=== PATIENT | female | born 1990 | race American Indian/Alaskan Native ===

== ENCOUNTER 2017-05-26 15:35 | Outpatient (CLI) | payer MEDICAID, OTHER ==
[2017-05-26] MEDS ORDERED: LACTATED RINGERS 500 ML IV ONE (15:39)
[2017-05-26 16:25] LABS: Urine Drugs of Abuse Note Disclamer
[2017-05-26 16:55] LABS: Bilirubin,Urine NEG (Negative); Blood,Urine NEG (Negative); Ketones,Urine NEG (Negative); Leukocyte Esterase,Urine NEG (Negative); Nitrite,Urine NEG (Negative); Protein,Urine <15 mg/dL mg/dL (Negative); Urobilinogen,Urine < 2.0 mg/dL (<2.0)
[2017-05-26 17:06] VITALS: BP 104/65
== END 2017-05-26 17:30 | disposition home or self-care (01) ==
LOC: TRG 15:35
PROVIDERS: ATTEND Obstetrics & Gynecology
DX: O47.02 False labor before 37 completed weeks of gestation, second trimester (principal); Z3A.27 27 weeks gestation of pregnancy
CPT/HCPCS: 59025; 80307; 81001

== ENCOUNTER 2017-07-12 15:38 | Observation (INO) | payer MEDICAID ==
[2017-07-12] MEDS ORDERED: LACTATED RINGERS 500 ML IV ONE (16:10)
[2017-07-12] MEDS ORDERED: ZOFRAN ONE (16:40)
[2017-07-12] MEDS ORDERED: ZOFRAN IM ONE (16:48)
[2017-07-12] MEDS ORDERED: TYLENOL PR PRN (17:55)
--- NOTE | 2017-07-12 18:44 | XRay Report ---
FINAL REPORT EXAM: XR CHEST ROUTINE 2V HISTORY: congestion TECHNIQUE: Two view chest PA and lateral PRIORS: None. FINDINGS: Cardiac and mediastinal contours are unremarkable. No focal pulmonary infiltrate is identified. No pleural fluid collection seen. Pulmonary vasculature is unremarkable. IMPRESSION: Negative two-view chest
[2017-07-12 19:36] LABS: Basophils % (Auto) 0.1 % (0.0-1.8); Hematocrit 32.3 % (30.3-42.9); Hemoglobin 10.9 gm/dl (10.1-14.3); Lymphocytes # (Auto) 0.3 K/mm3 (1.2-5.4); Lymphocytes % (Auto) 2.1 % (13.4-35.0); Mean Corpuscular HGB Conc 34 % (30-34); Mean Corpuscular Hemoglobin 32 pg (28-32); Mean Corpuscular Volume 94 fl (79-97); Monocytes # (Auto) 1.2 K/mm3 (0.0-0.8); Monocytes % (Auto) 7.8 % (0.0-7.3); Platelet Count 198 K/mm3 (140-440); Red Blood Count 3.45 M/mm3 (3.65-5.03)
[2017-07-12 19:40] LABS: Bilirubin,Urine NEG (Negative); Blood,Urine NEG (Negative); Color,Urine Yellow (Yellow); Mucus,Urine FEW /HPF; Nitrite,Urine NEG (Negative); Urobilinogen,Urine < 2.0 mg/dL (<2.0)
[2017-07-12] MEDS: LACTATED RINGERS 1,000 ML IV SCH (19:57)
[2017-07-12 20:00] LABS: Alanine Aminotransferase 25 units/L (7-56); Albumin 3.2 g/dL (3.9-5); BUN/Creatinine Ratio 6; Blood Urea Nitrogen 3 mg/dL (7-17); Hemolysis Index 4
--- NOTE | 2017-07-12 20:37 | History and Physical Report ---
History of Present Illness Date of examination: 07/12/17 Date of admission: 07/12/17 20:13 Chief complaint: Febrile illness History of present illness: 26 yo female who started coughing yesterday with body aches. 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 +FM. States there's no on at home with the flu and denies exposure to the flu Past History Past Medical History: no pertinent history Past Surgical History: no surgical history Social history: no significant social history (recently stopped smoking) - Obstetrical History Expected Date of Delivery: 08/21/17 Actual Gestation: 34 Week(s) 2 Day(s) : 2 Number of Pregnancies: 1 () Medications and Allergies Allergies Allergy/AdvReac Type Severity Reaction Status Date / Time No Known Allergies Allergy Unverified 05/26/17 15:39 Active Meds: Active Medications Acetaminophen (Tylenol) 650 mg PA Q4H PRN PRN Reason: Fever Last Admin: 07/12/17 19:56 Dose: 650 mg Lactated Ringer's (Lactated Ringers) 1,000 mls @ 125 mls/hr IV DIRECT SHANTELL Last Admin: 07/12/17 19:57 Dose: 125 mls/hr Review of Systems Constitutional: sweats, fatigue, malaise Respiratory: cough, cough with sputum Gastrointestinal: nausea, vomiting - Vital Signs Vital signs: Vital Signs Temp Pulse Resp 100.8 F H 109 H 22 07/12/17 16:14 07/12/17 16:14 07/12/17 16:14 Temp Pulse Resp BP Pulse Ox 100.3 F H 113 H 22 128/76 07/12/17 19:30 07/12/17 19:27 07/12/17 16:14 07/12/17 19:27 - Physical Exam Breasts: Positive: deferred Lungs: Positive: Clear to auscultation, Normal air movement Abdomen: Positive: soft. Negative: tenderness Uterus: Positive: enlarged. Negative: tender Extremities: Positive: normal. Negative: tenderness, edema - Obstetrical FHR: category 1 Uterine Contraction Monitor Mode: External Results Result Diagrams: 07/12/17 19:10 07/12/17 19:10 Abnormal lab results 07/12/17 07/12/17 Range/Units 19:10 19:10 WBC 14.9 H (4.5-11.0) K/mm3 RBC 3.45 L (3.65-5.03) M/mm3 RDW 13.0 L (13.2-15.2) % Lymph % (Auto) 2.1 L (13.4-35.0) % [place] % (Auto) 7.8 H (0.0-7.3) % Lymph # 0.3 L (1.2-5.4) K/mm3 [place] # 1.2 H (0.0-0.8) K/mm3 Seg Neutrophils % 90.0 H (40.0-70.0) % Seg Neutrophils # 13.4 H (1.8-7.7) K/mm3 Sodium 136 L (137-145) mmol/L Potassium 3.1 L (3.6-5.0) mmol/L Carbon Dioxide 19 L (22-30) mmol/L BUN 3 L (7-17) mg/dL Creatinine 0.5 L (0.7-1.2) mg/dL Calcium 8.0 L (8.4-10.2) mg/dL AST 51 H (5-40) units/L Total Protein 6.0 L (6.3-8.2) g/dL Albumin 3.2 L (3.9-5) g/dL All other labs normal. Assessment and Plan - Patient Problems (1) 34 weeks gestation of Current Visit: Yes Status: Acute (2) Limited care in third trimester Current Visit: Yes Status: Acute (3) Febrile illness, acute Current Visit: Yes Status: Acute Plan to address problem: No s/s chorioamnionitis ? Bronchitis, negative rapid influenza CXR normal BCx2 if T 101 Continune tylenol for aches (4) Hypokalemia Current Visit: Yes Status: Acute Plan to address problem: Replace K+ (5) Glycosuria with normal serum glucose Current Visit: Yes Status: Acute Plan to address problem: chk [id number] (6) Dehydration during Current Visit: Yes Status: Acute Plan to address problem: Continue hydration
[2017-07-12] MEDS ORDERED: REGLAN PO PRN (20:54)
[2017-07-12] MEDS ORDERED: KCL 10MEQ/100ML 10 MEQ/100 ML BAG IV SCH (21:00)
[2017-07-12] MEDS ORDERED: ZITHROMAX PO ONE (21:00)
[2017-07-12] MEDS ORDERED: KCL 20 MEQ in NACL 0.9% 250ML 250 ML IV ONE (21:30)
[2017-07-13 07:11] LABS: Basophils # (Auto) 0.1 K/mm3 (0.0-0.1); Basophils % (Auto) 0.4 % (0.0-1.8); Hematocrit 31.8 % (30.3-42.9); Hemoglobin 10.5 gm/dl (10.1-14.3); Lymphocytes # (Auto) 0.9 K/mm3 (1.2-5.4); Lymphocytes % (Auto) 6.5 % (13.4-35.0); Mean Corpuscular HGB Conc 33 % (30-34); Mean Corpuscular Hemoglobin 31 pg (28-32); Mean Corpuscular Volume 95 fl (79-97); Monocytes # (Auto) 1.8 K/mm3 (0.0-0.8); Monocytes % (Auto) 12.5 % (0.0-7.3); Platelet Count 195 K/mm3 (140-440); Red Blood Count 3.35 M/mm3 (3.65-5.03); Red Cell Distribution Width 13.4 % (13.2-15.2)
[2017-07-13 07:33] LABS: Alanine Aminotransferase 28 units/L (7-56); Albumin 3.2 g/dL (3.9-5); BUN/Creatinine Ratio 8; Blood Urea Nitrogen 4 mg/dL (7-17); Calcium 8.1 mg/dL (8.4-10.2); Hemolysis Index 0
--- NOTE | 2017-07-13 09:06 | Progress Note ---
Assessment and Plan - Patient Problems (1) 34 weeks gestation of Current Visit: Yes Status: Acute (2) Limited care in third trimester Current Visit: Yes Status: Acute (3) Febrile illness, acute Current Visit: Yes Status: Acute Plan to address problem: Feels better, will allow home once 24 hrs afebrile. Continue Zithromax and zofran. (4) Hypokalemia Current Visit: Yes Status: Resolved (5) Glycosuria with normal serum glucose Current Visit: Yes Status: Acute Plan to address problem: No obvious evidence of diabetes (6) Dehydration during Current Visit: Yes Status: Resolved Plan to address problem: no further vomiting (7) Transaminitis Current Visit: Yes Status: Acute Plan to address problem: no evidence of Preeclampsia, observe for now Subjective - Subjective Date of service: 07/13/17 Principal diagnosis: IUP@34 wga, acute bronchitis Interval history: feels better, has some lower back pain. No further vomiting, slight nausea this am. Patient reports: movement normal, contractions (rare), no new complaints Objective - Vital Signs Vital Signs: Vital Signs - 12hr 07/12/17 07/12/17 07/12/17 21:06 21:11 21:16 Temperature Pulse Rate 115 H 109 H 108 H Respiratory Rate Blood Pressure O2 Sat by Pulse 96 97 97 Oximetry 07/12/17 07/12/17 07/12/17 21:21 21:26 21:31 Temperature Pulse Rate 104 H 102 H 102 H Respiratory Rate Blood Pressure O2 Sat by Pulse 96 96 98 Oximetry 07/12/17 07/12/17 07/12/17 21:36 21:41 21:46 Temperature Pulse Rate 107 H 108 H 91 H Respiratory Rate Blood Pressure O2 Sat by Pulse 96 96 97 Oximetry 07/12/17 07/12/17 07/12/17 21:51 21:56 22:00 Temperature Pulse Rate 100 H 92 H 102 H Respiratory Rate Blood Pressure O2 Sat by Pulse 96 96 93 Oximetry 07/12/17 07/12/17 07/12/17 22:01 22:06 22:09 Temperature Pulse Rate 109 H 101 H 109 H Respiratory Rate Blood Pressure O2 Sat by Pulse 92 96 94 Oximetry 07/12/17 07/12/17 07/12/17 22:11 22:14 22:16 Temperature Pulse Rate 102 H 114 H Respiratory Rate Blood Pressure O2 Sat by Pulse 98 76 L 98 Oximetry 07/12/17 07/12/17 07/12/17 22:21 22:23 22:26 Temperature Pulse Rate 92 H 54 L 100 H Respiratory Rate Blood Pressure O2 Sat by Pulse 97 75 L 97 Oximetry 07/12/17 07/12/17 07/12/17 22:31 22:36 22:41 Temperature Pulse Rate 94 H 106 H 107 H Respiratory Rate Blood Pressure O2 Sat by Pulse 96 98 98 Oximetry 07/12/17 07/12/17 07/12/17 22:55 23:00 23:05 Temperature Pulse Rate 89 100 H 109 H Respiratory Rate Blood Pressure O2 Sat by Pulse 96 98 97 Oximetry 07/12/17 07/12/17 07/12/17 23:10 23:15 23:22 Temperature Pulse Rate 100 H 98 H 103 H Respiratory Rate Blood Pressure O2 Sat by Pulse 98 98 98 Oximetry 07/12/17 07/12/17 07/12/17 23:27 23:32 23:37 Temperature Pulse Rate 92 H 98 H 102 H Respiratory Rate Blood Pressure O2 Sat by Pulse 97 97 97 Oximetry 07/12/17 07/12/17 07/12/17 23:39 23:42 23:47 Temperature Pulse Rate 93 H 117 H 102 H Respiratory Rate Blood Pressure O2 Sat by Pulse 93 97 96 Oximetry 07/12/17 07/12/17 07/13/17 23:52 23:57 00:02 Temperature Pulse Rate 109 H 104 H 98 H Respiratory Rate Blood Pressure O2 Sat by Pulse 96 96 98 Oximetry 07/13/17 07/13/17 07/13/17 00:07 00:12 00:25 Temperature Pulse Rate 97 H 94 H 107 H Respiratory Rate Blood Pressure O2 Sat by Pulse 97 96 98 Oximetry 07/13/17 07/13/17 07/13/17 00:30 00:35 00:40 Temperature 98.4 F Pulse Rate 91 H 90 89 Respiratory 18 Rate Blood Pressure O2 Sat by Pulse 96 96 98 Oximetry 07/13/17 07/13/17 07/13/17 00:45 00:50 00:55 Temperature Pulse Rate 92 H 84 82 Respiratory Rate Blood Pressure O2 Sat by Pulse 98 96 96 Oximetry 07/13/17 07/13/17 07/13/17 00:58 01:00 01:05 Temperature Pulse Rate 97 H 85 Respiratory Rate Blood Pressure O2 Sat by Pulse 59 L 97 97 Oximetry 07/13/17 07/13/17 07/13/17 01:10 01:15 01:20 Temperature Pulse Rate 104 H 96 H 104 H Respiratory Rate Blood Pressure O2 Sat by Pulse 98 96 96 Oximetry 07/13/17 07/13/17 07/13/17 03:54 04:00 04:05 Temperature Pulse Rate 107 H 94 H 83 Respiratory Rate Blood Pressure O2 Sat by Pulse 97 100 98 Oximetry 07/13/17 07/13/17 07/13/17 04:10 04:15 04:20 Temperature Pulse Rate 89 95 H 108 H Respiratory Rate Blood Pressure O2 Sat by Pulse 99 97 96 Oximetry 07/13/17 07/13/17 07/13/17 04:24 04:25 04:30 Temperature Pulse Rate 89 87 78 Respiratory Rate Blood Pressure O2 Sat by Pulse 80 L 100 100 Oximetry 07/13/17 07/13/17 07/13/17 04:35 06:09 06:10 Temperature Pulse Rate 85 103 H 98 H Respiratory Rate Blood Pressure 123/77 O2 Sat by Pulse 100 98 Oximetry 07/13/17 07/13/17 07/13/17 06:15 06:20 06:25 Temperature Pulse Rate 96 H 80 99 H Respiratory Rate Blood Pressure O2 Sat by Pulse 98 100 97 Oximetry 07/13/17 07/13/17 07/13/17 06:30 06:35 06:40 Temperature Pulse Rate 85 86 79 Respiratory Rate Blood Pressure O2 Sat by Pulse 97 98 97 Oximetry 07/13/17 07/13/17 07/13/17 06:45 06:50 06:55 Temperature Pulse Rate 87 89 88 Respiratory Rate Blood Pressure O2 Sat by Pulse 97 98 98 Oximetry 07/13/17 07/13/17 07/13/17 07:00 07:05 07:10 Temperature Pulse Rate 80 80 102 H Respiratory Rate Blood Pressure O2 Sat by Pulse 97 98 94 Oximetry 07/13/17 07/13/17 07/13/17 07:59 08:04 08:09 Temperature Pulse Rate 101 H 92 H 89 Respiratory Rate Blood Pressure O2 Sat by Pulse 98 99 99 Oximetry 07/13/17 07/13/17 07/13/17 08:10 08:14 08:45 Temperature Pulse Rate 90 102 H 96 H Respiratory Rate Blood Pressure 124/74 O2 Sat by Pulse 99 98 Oximetry 07/13/17 07/13/17 07/13/17 08:50 08:55 09:00 Temperature Pulse Rate 86 97 H 93 H Respiratory Rate Blood Pressure O2 Sat by Pulse 98 98 98 Oximetry - Exam Breasts: deferred Cardiovascular: Regular rate Lungs: Clear to auscultation, Normal air movement Abdomen: Present: normal appearance. Absent: tenderness Uterus: Absent: tenderness FHR: category 1 (FHT's come off monitor when she sits up) Uterine Contraction Monitor Mode: External Uterine Contraction Pattern: Irregular (rare) Extremities: normal - Labs Labs: Abnormal Labs 07/12/17 07/12/17 07/13/17 19:10 19:10 06:43 WBC 14.9 H 14.2 H RBC 3.45 L 3.35 L RDW 13.0 L Lymph % (Auto) 2.1 L 6.5 L [place] % (Auto) 7.8 H 12.5 H Lymph # 0.3 L 0.9 L [place] # 1.2 H 1.8 H Seg Neutrophils % 90.0 H 80.6 H Seg Neutrophils # 13.4 H 11.5 H Sodium 136 L Potassium 3.1 L Carbon Dioxide 19 L BUN 3 L Creatinine 0.5 L Calcium 8.0 L AST 51 H Total Protein 6.0 L Albumin 3.2 L 07/13/17 06:43 WBC RBC RDW Lymph % (Auto) [place] % (Auto) Lymph # [place] # Seg Neutrophils % Seg Neutrophils # Sodium Potassium Carbon Dioxide 16 L BUN 4 L Creatinine 0.5 L Calcium 8.1 L AST 50 H Total Protein 5.5 L Albumin 3.2 L Laboratory Results - last 24 hr 07/12/17 07/12/17 07/12/17 19:10 19:10 19:10 WBC 14.9 H RBC 3.45 L Hgb 10.9 Hct 32.3 MCV 94 MCH 32 MCHC 34 RDW 13.0 L Plt Count 198 Lymph % (Auto) 2.1 L [place] % (Auto) 7.8 H Eos % (Auto) 0.0 Baso % (Auto) 0.1 Lymph # 0.3 L [place] # 1.2 H Eos # 0.0 Baso # 0.0 Seg Neutrophils % 90.0 H Seg Neutrophils # 13.4 H Sodium 136 L Potassium 3.1 L Chloride 99.4 Carbon Dioxide 19 L Anion Gap 21 BUN 3 L Creatinine 0.5 L Estimated GFR > 60 BUN/Creatinine Ratio 6 Glucose 73 Hemoglobin A1c Calcium 8.0 L Total Bilirubin 0.60 AST 51 H ALT 25 Alkaline Phosphatase 97 Total Protein 6.0 L Albumin 3.2 L Albumin/Globulin Ratio 1.1 Urine Color Yellow Urine Turbidity Clear Urine pH 6.0 Ur Specific [place] 1.015 Urine Protein 30 mg/dl Urine Glucose (UA) >=500 Urine Ketones 80 Urine Blood Neg Urine Nitrite Neg Urine Bilirubin Neg Urine Urobilinogen < 2.0 Ur Leukocyte Esterase Neg Urine WBC (Auto) 1.0 Urine RBC (Auto) 4.0 U Epithel Cells (Auto) < 1.0 Urine Mucus Few Blood Type Antibody Screen 07/12/17 07/13/17 07/13/17 19:10 06:43 06:43 WBC 14.2 H RBC 3.35 L Hgb 10.5 Hct 31.8 MCV 95 MCH 31 MCHC 33 RDW 13.4 Plt Count 195 Lymph % (Auto) 6.5 L [place] % (Auto) 12.5 H Eos % (Auto) 0.0 Baso % (Auto) 0.4 Lymph # 0.9 L [place] # 1.8 H Eos # 0.0 Baso # 0.1 Seg Neutrophils % 80.6 H Seg Neutrophils # 11.5 H Sodium 138 Potassium 3.6 Chloride 102.0 Carbon Dioxide 16 L Anion Gap 24 BUN 4 L Creatinine 0.5 L Estimated GFR > 60 BUN/Creatinine Ratio 8 Glucose 69 Hemoglobin A1c Calcium 8.1 L Total Bilirubin 0.60 AST 50 H ALT 28 Alkaline Phosphatase 96 Total Protein 5.5 L Albumin 3.2 L Albumin/Globulin Ratio 1.4 Urine Color Urine Turbidity Urine pH Ur Specific [place] Urine Protein Urine Glucose (UA) Urine Ketones Urine Blood Urine Nitrite Urine Bilirubin Urine Urobilinogen Ur Leukocyte Esterase Urine WBC (Auto) Urine RBC (Auto) U Epithel Cells (Auto) Urine Mucus Blood Type O POSITIVE Antibody Screen Negative 07/13/17 06:43 WBC RBC Hgb Hct MCV MCH MCHC RDW Plt Count Lymph % (Auto) [place] % (Auto) Eos % (Auto) Baso % (Auto) Lymph # [place] # Eos # Baso # Seg Neutrophils % Seg Neutrophils # Sodium Potassium Chloride Carbon Dioxide Anion Gap BUN Creatinine Estimated GFR BUN/Creatinine Ratio Glucose Hemoglobin A1c 4.8 Calcium Total Bilirubin AST ALT Alkaline Phosphatase Total Protein Albumin Albumin/Globulin Ratio Urine Color Urine Turbidity Urine pH Ur Specific [place] Urine Protein Urine Glucose (UA) Urine Ketones Urine Blood Urine Nitrite Urine Bilirubin Urine Urobilinogen Ur Leukocyte Esterase Urine WBC (Auto) Urine RBC (Auto) U Epithel Cells (Auto) Urine Mucus Blood Type Antibody Screen
[2017-07-13] MEDS ORDERED: ZITHROMAX PO SCH (10:00)
[2017-07-13] MEDS ORDERED: TYLENOL PO PRN (11:01)
[2017-07-13] MEDS: LACTATED RINGERS 1,000 ML IV SCH (13:58)
[2017-07-13 18:29] VITALS: BP 112/74
--- NOTE | 2017-07-13 18:36 | Discharge Summary ---
Providers - Providers Date of Admission: 07/12/17 20:13 Date of discharge: 07/13/17 Attending physician: BELKIS PAEZ Primary care physician: ANNETTE HERNANDEZ Hospitalization Reason for admission: other (febrile illness, bronchitis) Hospital course: She was admitted with general malaise, cough, nausea and vomiting. She was given IVF hydration and started on a ZPack after her evaluation was negative for chorioamnionitis, influenza, pneumonia and UTI. She was allowed home after she naty afebrile x24 hrs, cat 1 NST, tolerating clear liquids and no further complaints. Condition at discharge: Good Disposition: DC-01 TO HOME OR SELFCARE - Discharge Diagnoses (1) 34 weeks gestation of Status: Acute (2) Limited care in third trimester Status: Acute (3) Febrile illness, acute Status: Acute (4) Hypokalemia Status: Resolved (5) Glycosuria with normal serum glucose Status: Acute (6) Dehydration during Status: Resolved (7) Transaminitis Status: Acute Plan - Discharge Medications Prescriptions: Azithromycin [Zithromax Z-ADAN] 250 mg PO DAILY #5 tab Metoclopramide [Reglan] 10 mg PO TID PRN #30 tab PRN Reason: Nausea - Provider Discharge Summary Activity: other (no sex) Diet: other (continue clear liquids for 24hours then advance to BRAT diet, follow up with your jewelry bearing maker for further instructions) Additional instructions: [] Smoking cessation referral if applicable(refer to patient education folder for contact #) [] Refer to [facility] Booklet Call your doctor immediately for: * Fever > 100.5 * Heavy vaginal bleeding ( >1 pad per hour) * Severe persistent headache * Shortness of breath * Reddened, hot, painful area to leg or breast * Drainage or odor from incision. * CALL YOUR SCREEN HANDLER'S OFFICE TOMORROW TO MAKE AN APPOINTMENT FOR EVALUATION IMMEDIATELY - Follow up plan Follow up: ANNETTE HERNANDEZ MD [Primary Care Provider] - (Please keep next regularly schedule OB visit) Forms: [facility] Discharge Summary
== END 2017-07-13 18:50 | disposition home or self-care (01) ==
LOC: TRG 15:38 → LD 15:39 → INTOOBSV 20:13 → TRG 20:13
PROVIDERS: ADMIT Obstetrics & Gynecology; ATTEND Obstetrics & Gynecology
DX: O99.283 Endocrine, nutritional and metabolic diseases complicating pregnancy, third trimester (principal); E87.6 Hypokalemia; O26.893 Other specified pregnancy related conditions, third trimester; R50.9 Fever, unspecified; E86.0 Dehydration; R81 Glycosuria; R74.0 Nonspecific elevation of levels of transaminase and lactic acid dehydrogenase [LDH]; Z3A.34 34 weeks gestation of pregnancy
CPT/HCPCS: 36415; 71046; 80053; 81001; 83036; 85025; 86850; 86900; 86901; 87086; 87400; 96361; 96365; 96366; G0378; J2405; J3480; J7050; J7120

== ENCOUNTER 2017-07-23 15:18 | Outpatient (CLI) | payer MEDICAID ==
[2017-07-23 15:59] VITALS: BP 114/83
[2017-07-23] MEDS ORDERED: LACTATED RINGERS 500 ML IV ONE (16:04)
== END 2017-07-23 16:15 | disposition home or self-care (01) ==
LOC: TRG 15:18
PROVIDERS: ATTEND Obstetrics & Gynecology
DX: O47.03 False labor before 37 completed weeks of gestation, third trimester (principal); Z3A.35 35 weeks gestation of pregnancy
CPT/HCPCS: 59025